=== PATIENT | male | born 1990 | race Caucasian/White ===

== ENCOUNTER 2019-12-11 21:26 | Emergency (ER) | payer SELFPAY ==
[~2019-12-11] VITALS: Ht 193 cm; Wt 71.2 kg
[2019-12-11 21:35] VITALS: BP 111/70
--- NOTE | 2019-12-11 21:38 | NUR ---
TO LOBBY A/W BED AMBULATORY
--- NOTE | 2019-12-11 22:07 | NUR ---
ASSESSMENT COMPLETE WITH PATIENT SITTING UP IN BED. BED LOW LOCKED WITH SIDE RAIL UP ON ONE SIDE. BIB SELF REPORTS PAIN IN RIGHT ANKLE AFTER INJURY AT WORK 1 MONTH AGO. PATIENT STATES THE PAIN HAS NOT GOTTEN BETTER. +CMS. SWELLING AND BRUISING NOTED TO ANKLE AND TOP OF RIGHT FOOT. PATIENT STATES NO OTHER SYMPTOMS AT THIS TIME. LUNGS CLEAR. ABD SOFT AND NON-TENDER.
[2019-12-11] MEDS ORDERED: IBUPROFEN 600 MG TAB PO ONE (22:25)
--- NOTE | 2019-12-11 22:35 | NUR ---
jamie wrap in place on right ankle. +cms. patient states it is comfortable.
[2019-12-11 22:38] VITALS: BP 108/65
--- NOTE | 2019-12-11 22:39 | NUR ---
Patient discharged with v/s stable. Written and verbal after care instructions given and explained. Patient alert, oriented and verbalized understanding of instructions. Ambulatory with steady gait. All questions addressed prior to discharge. ID band removed. Earnest wrap on right ankle. Patient advised to follow up with PMD. Rx of IBUPROFEN given. Patient educated on indication of medication including possible reaction and side effects. Opportunity to ask questions provided and answered.
== END 2019-12-11 22:39 | disposition home or self-care (01) ==
LOC: MED 21:26
DX: S93.401A Sprain of unspecified ligament of right ankle, initial encounter (principal); X58.XXXA Exposure to other specified factors, initial encounter; Y93.89 Activity, other specified; Y92.89 Other specified places as the place of occurrence of the external cause; Y99.8 Other external cause status
CPT/HCPCS: 73610; 99283

== ENCOUNTER 2020-01-14 01:07 | Emergency (ER) | payer OTHER ==
[~2020-01-14] VITALS: Ht 193 cm; Wt 81.2 kg
[2020-01-14 01:11] VITALS: BP 117/74
[2020-01-14] MEDS ORDERED: ONDANSETRON 4 MG ODT PO ONE (02:35)
[2020-01-14 03:19] VITALS: BP 110/70
== END 2020-01-14 04:06 | disposition home or self-care (01) ==
LOC: MED 01:07
DX: R11.0 Nausea (principal); F12.10 Cannabis abuse, uncomplicated
CPT/HCPCS: 87804; 99283; Q0162

== ENCOUNTER 2023-02-11 05:20 | Emergency (ER) | payer MEDICAID, OTHER ==
[~2023-02-11] VITALS: Ht 182.9 cm; Wt 77.1 kg
[2023-02-11 05:31] VITALS: BP 142/90
[2023-02-11 05:36] VITALS: BP 142/90
--- NOTE | 2023-02-11 05:37 | NUR ---
Pt triaged and placed in WR. Appears in no acute distress at this time. Breathing adequately on RA.
--- NOTE | 2023-02-11 05:37 | NUR ---
32 M, C/O DIFFICULTY BREATHING XCOUPLE DAYS. (-) COUGH, FEVER, N/V, CP O2 SAT 100% ON RA AT THIS TIME. APPEARS IN NO ACUTE DISTRESS. PMH: DENIES A: NKDA
--- NOTE | 2023-02-11 06:05 | NUR ---
Dr. Babcock examining patient.
--- NOTE | 2023-02-11 06:48 | NUR ---
Pt unable to locate in WR for imaging.
--- NOTE | 2023-02-11 06:49 | NUR ---
PATIENT ELOPED FROM FACILITY. DISCHARGE INSTRUCTIONS NOT GIVEN TO PATIENT. DR. CHARLES NOTIFIED.
== END 2023-02-11 06:49 | disposition left against medical advice (07) ==
LOC: MED 05:20
DX: R06.00 Dyspnea, unspecified (principal); F12.90 Cannabis use, unspecified, uncomplicated; Z72.89 Other problems related to lifestyle
CPT/HCPCS: 99281

== ENCOUNTER 2023-03-10 01:45 | Emergency (ER) | payer MEDICAID ==
[~2023-03-10] VITALS: Ht 193 cm; Wt 84.4 kg
[2023-03-10 01:56] VITALS: BP 130/81
[2023-03-10] MEDS ORDERED: GABAPENTIN 300 MG CAP PO ONE (04:25)
--- NOTE | 2023-03-10 05:05 | NUR ---
Patient discharged with v/s stable. Written and verbal after care instructions given and explained. Patient verbalized understanding. Ambulatory with steady gait. All questions addressed prior to discharge. Advised to follow up with PMD.
== END 2023-03-10 05:05 | disposition home or self-care (01) ==
LOC: MED 01:45
DX: G62.9 Polyneuropathy, unspecified (principal); F10.129 Alcohol abuse with intoxication, unspecified; F90.9 Attention-deficit hyperactivity disorder, unspecified type
CPT/HCPCS: 82948; 99283